=== PATIENT | female | born 1985 | race American Indian/Alaskan Native ===

== ENCOUNTER 2018-08-17 08:10 | Emergency (ER) | payer OTHER ==
[2018-08-17] MEDS ORDERED: IBUPROFEN PO ONE (09:30)
--- NOTE | 2018-08-17 10:12 | XRay Report ---
THORACIC SPINE, 2 VIEWS: HISTORY: back pain. Normal bone mineralization. No evidence for compression deformity, malalignment, or bone lesion. The posterior ribs are intact. Minimal degenerative disc disease is noted in the mid thoracic spine. There is moderate dextrocurvature of the lumbar spine which is partially imaged. The paraspinal soft tissues are within normal limits. IMPRESSION: Minimal thoracic spondylosis. Scoliosis of the lumbar region.
--- NOTE | 2018-08-17 10:37 | Emergency Department Report ---
HPI - General Chief Complaint: Back Pain/Injury Time Seen by Provider: 08/17/18 09:29 - HPI HPI: This is a 33-year-old female who presents to ED complaining of upper back pain. Patient states she was standing for long period of hours breathing some other girl's hair. Patient states that the pain is spasmic-like. Describes as throbbing. She denies any injury or trauma to the back. She denies fevers/chills/nausea vomiting/abdominal pain chest pain or shortness of breath dizziness or headache. ED Past Medical Hx - Medications Home Medications: Home Medications Medication Instructions Recorded Confirmed Last Taken Type Cyclobenzaprine [Flexeril] 10 mg PO QHS #20 tablet 08/17/18 Unknown Rx Ibuprofen [Motrin 800 MG tab] 800 mg PO TID #30 tab 08/17/18 Unknown Rx ED Review of Systems ROS: Stated complaint: BACK PAIN/AMPARO Other details as noted in HPI Comment: All other systems reviewed and negative Physical Exam - Physical Exam Vital Signs: Vital Signs 08/17/18 08:18 Temperature 98.3 F Pulse Rate 71 Respiratory 18 Rate Blood Pressure 138/94 [Right] O2 Sat by Pulse 100 Oximetry Physical Exam: GENERAL: Alert and oriented x3, no apparent distress, Normal Gait, atraumatic. HEAD: Head is normocephalic and a-traumatic. NECK: Supple. Non edematous, No lymphadenopathy or thyromegaly. No C-spine tenderness, full range of motion LUNGS: Symetrical with respiration, No wheezing, no rales or crackles, CTAB. HEART: S1, S2 present, regular rate and rhythm without murmur, no rubs, no gallops. Non tender to palpation BACK: Full range of motion, no spinal tenderness, Tenderness to palpation of the trapezius muscles and latissimus dorsi muscles of the back NEUROLOGIC: The patient is cooperative with no focal neurologic deficits. SKIN: Warm and dry, No lesions, No ulceration or induration present. ED Course Vital Signs 08/17/18 08:18 Temperature 98.3 F Pulse Rate 71 Respiratory 18 Rate Blood Pressure 138/94 [Right] O2 Sat by Pulse 100 Oximetry ED Medical Decision Making - Radiology Data Radiology results: report reviewed, image reviewed 35-year-old female presents to ED with myalgia and muscle spasm of the pack ED course: Patient Motrin and x-ray in the ED Vital signs are normal patient is in no acute distress Discussed with patient follow-up with primary care physician. Discussed the patient and take medications as prescribed. Patient has no neurological deficit. Patient is alert and oriented 3 and understands all instructions given. Discussed drowsiness effect of Flexeril makes her drowsy and not to operate machinery while taking flexeril Critical care attestation.: If time is entered above; I have spent that time in minutes in the direct care of this critically ill patient, excluding procedure time. ED Disposition Clinical Impression: Muscle spasm, Myalgia Disposition: [id number] TO HOME OR SELFCARE Is pt being admited?: No Does the pt Need Aspirin: No Condition: Stable Instructions: Musculoskeletal Pain (ED), Trigger Point Pain (ED), Heat Pack Application (ED) Additional Instructions: Make sure to follow up with the primary care physician as discussed. Take all your medications as you've been prescribed. If you have any worsening symptoms or develop new symptoms please return to ED immediately. Prescriptions: Cyclobenzaprine [Flexeril] 10 mg PO QHS #20 tablet Ibuprofen [Motrin 800 MG tab] 800 mg PO TID #30 tab Referrals: PEDRO HAGER NP-C [Primary Care Provider] - 3-5 Days Forms: Work/School Release Form Time of Disposition: 10:39
[2018-08-18 18:33] VITALS: BP 138/94
== END 2018-08-17 11:00 | disposition home or self-care (01) ==
LOC: ED 08:10
DX: M54.6 Pain in thoracic spine (principal); M62.830 Muscle spasm of back
CPT/HCPCS: 72070; 99283